=== PATIENT | female | born 1965 | race Two or more races ===

== ENCOUNTER 2020-08-27 15:16 | Emergency (ER) | payer OTHER ==
[2020-08-27 15:49] VITALS: BP 144/85; PULSE 83; TEMP 98.4; BMI 30.7
[2020-08-27] MEDS ORDERED: IBUPROFEN 600 MG TABLET (FP) PO ONE (16:41)
== END 2020-08-27 17:04 | disposition home or self-care (01) ==
LOC: JERFT 15:16
DX: M25.561 Pain in right knee (principal); M25.531 Pain in right wrist; W01.0XXA Fall on same level from slipping, tripping and stumbling without subsequent striking against object, initial encounter
CPT/HCPCS: 73110-TC-RT-FY; 73130-TC-RT-FY; 73562-TC-RT-FY; 99283-25